=== PATIENT | male | born 1965 | race Caucasian/White ===

== ENCOUNTER 2018-06-13 02:38 | Emergency (ER) | payer SELFPAY ==
[2018-06-13 05:27] LABS: #Basophils 0.1 thou/uL (0.0-0.2); #Eosinphils 0.1 thou/uL (0.0-0.7); #Lymphocytes 2.3 thou/uL (1.20-3.40); #Monocytes 0.8 thou/uL (0.11-0.59); #Neutrophils 6.2 thou/uL (1.40-6.50); %Basophils 0.7 % (0.0-1.0); %Eosinophils 1.1 % (0.0-10.0); %Lymphocytes 24.1 % (21.0-51.0); %Monocytes 8.8 % (0.0-10.0); %Neutrophils 65.2 % (42.0-75.0); Hemoglobin 12.5 g/dL (14.0-18.0); Mean Corpuscular HGB CONC 33.3 g/dL (32.0-36.0); Mean Corpuscular Hemoglobin 27.9 pg (27.0-31.0); Mean Corpuscular Volume 83.8 fL (78.0-98.0); Mean Platelet Volume 8.4 fL (7.4-10.4); Platelet Count 282 thou/uL (130-400); RBC Distribution Width 12.1 % (11.5-14.5); Red Blood Cell (RBC) Count 4.48 mill/uL (4.70-6.10); White Blood Cell (WBC) Count 9.4 thou/uL (4.8-10.8)
[2018-06-13] MEDS ORDERED: Clindamycin 150 MG CAP ONE (05:35)
[2018-06-13 05:46] LABS: ALT (SGPT) 15 U/L (8-55); AST (SGOT) 19 U/L (5-34); Albumin 3.9 g/dL (3.5-5.0); Alkaline Phosphatase 98 U/L (40-150); Anion Gap 10 mmol/L (10-20); BUN (Urea Nitrogen) 17 mg/dL (8.4-25.7); Bilirubin, Total 0.9 mg/dL (0.2-1.2); Calc. Creatinine Clearance 0 mL/min (70-130); Calcium 9.2 mg/dL (7.8-10.44); Carbon Dioxide 25 mmol/L (22-29); Chloride 104 mmol/L (98-107); Estimated GFR-MDRD 89; Globulin 2.8 g/dL (2.4-3.5); Glucose 147 mg/dL (70-105); Potassium 3.7 mmol/L (3.5-5.1); Protein, Total 6.7 g/dL (6.0-8.3); Sodium 135 mmol/L (136-145)
--- NOTE | 2018-06-13 08:36 | CT ---
PRELIMINARY REPORT/[facility]/EMERGENTY AFTER-HOURS PROCEDURE CT Maxillofacial Without Intravenous Contrast, Sinus EXAM DATE/TIME: 06/13/2018 5:23 AM CLINICAL HISTORY: 53 years old, male; Pain; Face pain; Patient HX: Patient presents for evaluation of toothache, patien t presents for evaluation of jaw swelling. TECHNIQUE: CT Maxillofacial without intravenous contrast. Focus on the sinuses. COMPARISON: No relevant prior studies available. FINDINGS: Frontal sinuses: Unremarkable. Ethmoid air cells: Unremarkable. Sphenoid sinuses: Unremarkable. Maxillary sinuses: Mild mucosal thickening in the left maxillary sinus. Minimal mucosal thickening in the right maxillary sinus. Nasal cavity/Septum: Unremarkable. Dental: Remaining bilateral maxillary molars with broken crowns and mild periapical lucency. Remainin g roots are unremarkable. Soft tissues: Soft tissue thickening/swelling anterolaterally along the left side of the maxilla with subcutaneous fat stranding in the left facial soft tissues extending around the mandible and along t he infraorbital and paranasal regions. No obvious fluid collection identified. Bones/joints: Unremarkable. IMPRESSION: Soft tissue swelling along the maxilla and subcutaneous facial soft tissues on the left. No fluid col lection identified. Thank you for allowing us to participate in the care of your patient. Dictated and Authenticated by: Davis Alberto MD 06/13/2018 6:20 AM Central Time ([place] & [place]) FINAL REPORT CT FACIAL BONES WITH CORONAL AND SAGITTAL REFORMATIONS WITHOUT IV CONTRAST: (CT SINUSES WITHOUT CONTRAST) Date: 06/13/18 FINDINGS/IMPRESSION: I agree with the preliminary report given by Jayda. POS: OFF
== END 2018-06-13 06:45 | disposition home or self-care (01) ==
LOC: ERS 02:38
DX: K04.7 Periapical abscess without sinus (principal); F17.290 Nicotine dependence, other tobacco product, uncomplicated
CPT/HCPCS: 36415; 80053; 85025

== ENCOUNTER 2019-04-25 18:54 | Observation (INO) | payer OTHER, SELFPAY ==
--- NOTE | 2019-04-25 19:17 | RAD ---
XR Chest Pa Lat STANDARD History: Injury Comparison: None. Findings: Right midclavicular fracture with one shaft width inferior displacement of the distal fragm ent as well as overriding approximately 3 cm. No pneumothorax. No effusion. Cardiac silhouette and mediastinal contours are within normal limits. Impression: Right midclavicular fracture with 3 cm overriding and inferior displacement of the distal fragment one shaft width.
--- NOTE | 2019-04-25 19:18 | RAD ---
XR Clavicle Rt 2 V STANDARD History: Injury Comparison: None. Findings: Right midclavicular fracture with one shaft width inferior displacement distal fragment and overriding 3 cm. Ribs are intact. Moderate degenerative changes of acromioclavicular joint. There is an area of sclerosis of the proximal humeral metaphysis. Impression: 1.Right midclavicular fracture with 3 cm overriding and inferior displacement of the distal fragment one shaft width. 2. Peripheral area of sclerosis proximal humeral metaphysis of unclear origin. Nonemergent dedicated shoulder radiographs recommended.
[2019-04-25] MEDS ORDERED: Ketorolac Tromethamine 30 MG/ML VIAL ONE (20:31)
[2019-04-25] MEDS ORDERED: Ondansetron PF 4 MG/2 ML Vial ONE (20:31)
[2019-04-25] MEDS ORDERED: Morphine 4 MG/ML VIAL ONE (20:31)
[2019-04-25] MEDS ORDERED: Morphine 4 MG/ML VIAL SLOW IVP PRN (23:02)
[2019-04-25] MEDS ORDERED: Ondansetron PF 4 MG/2 ML Vial IVP PRN (23:02)
[2019-04-25] MEDS ORDERED: Ondansetron ODT 4 MG TAB SL PRN (23:02)
[2019-04-25] MEDS ORDERED: Acetaminophen 325 MG TAB PO PRN (23:02)
[2019-04-25 23:34] VITALS: BMI 23.0
[2019-04-25] MEDS ORDERED: Sodium Chloride 0.9% 1,000 ML IV SCH (23:59)
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
[2019-04-26] MEDS ORDERED: FLU VACC QS2019-20(6MOS UP)/PF 60 MCG/0.5 ML SYRINGE IM ONE (09:00)
[2019-04-26] MEDS ORDERED: Morphine 2 MG/ML SYRINGE SLOW IVP PRN (11:20)
[2019-04-26] MEDS ORDERED: Morphine 4 MG/ML VIAL SLOW IVP PRN (11:21)
[2019-04-26] MEDS ORDERED: CEFAZOLIN 2 GM in Premix Bag 1 BAG IVPB SCH (14:00)
[2019-04-26] MEDS ORDERED: Clindamycin/D5W 900 mg/50 ml Premix Bag ONE (16:07)
[2019-04-26] MEDS ORDERED: Levofloxacin 500 mg/D5W 100 ml Premix Bag ONE (16:08)
[2019-04-26] MEDS ORDERED: Fentanyl 100 MCG/2 ML VIAL ONE ×3 (16:20→18:07)
[2019-04-26] MEDS ORDERED: Acetaminophen/Codeine 30-300mg Tablet PO PRN (17:24)
[2019-04-26] MEDS ORDERED: traMADol HCl 50 MG TAB PO PRN (17:25)
[2019-04-26] MEDS ORDERED: PACU-Morphine 4MG/ML VIAL SLOW IVP PRN (17:44)
[2019-04-26] MEDS ORDERED: Morphine Sulfate 2 MG/ML SYRINGE SLOW IVP PRN (17:44)
[2019-04-26] MEDS ORDERED: Promethazine HCl 25 MG/ML VIAL IM PRN (17:44)
[2019-04-26] MEDS ORDERED: HYDROmorphone 2 MG/ML VIAL SLOW IVP PRN (17:44)
[2019-04-26] MEDS ORDERED: Meperidine HCl/PF 25 MG/ML VIAL SLOW IVP PRN (17:44)
[2019-04-26] MEDS ORDERED: Promethazine HCl 25 MG/ML VIAL SLOW IVP PRN (17:44)
[2019-04-26] MEDS ORDERED: Ondansetron HCl/PF 4 MG/2 ML Vial IVP PRN (17:44)
--- NOTE | 2019-04-26 17:44 | RAD ---
RIGHT CLAVICLE THREE VIEWS: 04/26/19 HISTORY: Intraoperative films. This shows open reduction internal fixation of a clavicle fracture with plate and screws. Bony alignm ent appears satisfactory. IMPRESSION: Open reduction internal fixation of clavicle fracture. POS: TPC
[2019-04-26] MEDS ORDERED: diphenhydrAMINE 50 MG CAP PO PRN (20:14)
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
[2019-04-26 23:23] VITALS: BP 146/80; TEMP 97.9
[2019-04-26] MEDS ORDERED: Clindamycin/D5W 900 MG in Premix Bag 1 BAG IVPB SCH (23:59)
== END 2019-04-26 20:55 | disposition home or self-care (01) ==
LOC: ERS 18:54 → SJJU 20:10
PROVIDERS: ADMIT Orthopaedic Surgery; ATTEND Orthopaedic Surgery
PROC: 0PS904Z Reposition Right Clavicle with Internal Fixation Device, Open Approach (ICD-10-PCS; principal; 2019-04-26)
DX: S42.011A Anterior displaced fracture of sternal end of right clavicle, initial encounter for closed fracture (principal); F17.200 Nicotine dependence, unspecified, uncomplicated; F17.290 Nicotine dependence, other tobacco product, uncomplicated; F15.10 Other stimulant abuse, uncomplicated; F12.10 Cannabis abuse, uncomplicated; V19.9XXA Pedal cyclist (driver) (passenger) injured in unspecified traffic accident, initial encounter
CPT/HCPCS: 71046; 76000; 96361; 96374; 96375; 96376; C1713; G0378; J1885; J1956; J2270; J2405; J3010; J3490

== ENCOUNTER 2019-05-04 17:43 | Emergency (ER) | payer SELFPAY | END 2019-05-04 18:35 | disposition home or self-care (01) | LOC: ERS 17:43 | DX: T81.31XA Disruption of external operation (surgical) wound, not elsewhere classified, initial encounter (principal); F17.290 Nicotine dependence, other tobacco product, uncomplicated | CPT/HCPCS: 99282 ==

== ENCOUNTER 2021-12-17 00:13 | Emergency (ER) | payer SELFPAY | END 2021-12-17 03:25 | disposition home or self-care (01) | LOC: ERS 00:13 | DX: L02.512 Cutaneous abscess of left hand (principal) | CPT/HCPCS: 10060 ==